=== PATIENT | male | born 1950 | race Caucasian/White ===

== ENCOUNTER → 2016-09-24 | Outpatient (CLI) | payer BC, OTHER ==
[~2016-09-24] MED LIST: ASPI-781 PO; HYDR-762 PO; TEMA15CA6 PO
--- NOTE | 2016-09-24 15:37 | RADRPT ---
PROCEDURE: Right knee radiographs. CLINICAL INDICATION: Right knee pain. Postop. TECHNIQUE: Three views. Weight bearing. Frontal, lateral, and patellar view. COMPARISON: 06/28/2015 FINDINGS: There is no fracture or dislocation. The soft tissues are normal. 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 There is no lytic or blastic lesion. There is no joint effusion. IMPRESSION: 1. Satisfactory postoperative appearance of the right knee. RPTAT: QQ .Madi Rossi MD, Date Time Electronically viewed and signed by .Madi Rossi MD, on 09/24/2016 15:36 .R/
--- NOTE | 2016-09-25 05:52 | HKNOTE ---
DATE OF SERVICE: 09/24/2016 HISTORY OF PRESENT ILLNESS: A 66-year-old male status post right total knee replacement 12/15/2014 who presents today for onset of right knee pain that began about 2 weeks ago. The patient denies any associated trauma or injury to the right knee. The patient states that pain is onset with walking. After the patient has stopped walking, he states that pain is alleviated. Pain is moderate on onset, but he also states that at times it is mild. Since his right knee replacement, the patient states that he has had virtually no pain outside of the past 2 weeks. The patient states that he walks an average of 6 miles a day about 4 days per week. No falls. The patient denies any weakness to the knee. No radiating symptoms. The patient has had history of significant joint effusion but states that in the past couple of months, effusion continues to improve. Currently, the patient states that for the past 3 to 4 days he has been having no pain as his symptoms have alleviated, but he has concerns as to what it could be which brings him to the office today. PHYSICAL EXAMINATION: RIGHT KNEE: Active range of motion is 0 to 125 degrees with flexion/extension. Mild to moderate joint effusion. No tenderness to palpation to the right knee. Mild ligament laxity along the LCL and MCL. No tenderness to palpation. Normal gait. Nonantalgic. 5/5 strength to the quadriceps and hamstring muscles. Normal sensory examination to light touch. ASSESSMENT AND PLAN: Likely acute flare-up of right knee possibly due to increased activity as the patient does walk an average of 6 miles per day about 4 days a week. Ice modality is recommended 2 to 3 times a day for 15 to 20 minutes. Daily stretching also recommended. Anti-inflammatories as needed for pain. The patient is seen with Dr. Sullivan today. Dr. Sullivan recommends that if the patient continues to have pain relief, no further intervention is necessary, but if pain continues or should return in the next 2 to 3 weeks, the patient was advised to follow up in office for repeat evaluation. Follow up as needed. Dictated By: PJ MÁRQUEZ for KACIE SULLIVAN MD, KP/JACK Conf#: [id number] DID#: [id number] [facility]ITAL[facility]
== END | disposition home or self-care (01) ==
LOC: HKI 15:02
DX: Z47.1 Aftercare following joint replacement surgery (principal); Z96.651 Presence of right artificial knee joint; M25.561 Pain in right knee
CPT/HCPCS: 73562; G0463